=== PATIENT | female | born 1960 | race Two or more races ===

== ENCOUNTER 2021-08-25 18:24 | Emergency (ER) | payer OTHER ==
[~2021-08-25] VITALS: Ht 160 cm; Wt 72.6 kg
[2021-08-25] MEDS ORDERED: IBU400 MG PO (18:46)
[2021-08-25] MEDS ORDERED: ACETAMINOPHEN650 M2 PO (21:20)
== END 2021-08-25 21:33 | disposition home or self-care (01) ==
LOC: ER 18:24
DX: S00.83XA Contusion of other part of head, initial encounter (principal); W01.0XXA Fall on same level from slipping, tripping and stumbling without subsequent striking against object, initial encounter; Y92.89 Other specified places as the place of occurrence of the external cause